=== PATIENT | female | born 1980 | race Caucasian/White ===

== ENCOUNTER 2021-05-18 19:06 | Emergency (ER) | payer MEDICAID, SELFPAY ==
--- NOTE | 2021-05-18 | ECG_ITS ---
Test Reason : CHEST PAIN Blood Pressure : / mmHG Vent. Rate : 107 BPM Atrial Rate : 107 BPM P-R Int : 132 ms QRS Dur : 076 ms QT Int : 326 ms P-R-T Axes : 025 028 015 degrees QTc Int : 435 ms Sinus tachycardia Otherwise normal ECG No previous ECGs available Referred By: Generic ED Physician Electronically Signed By:CALISTA SHERMAN MD
--- NOTE | ~2021-05-18 | CT_ITS ---
EXAMINATION: CT CHEST WITH CONTRAST CLINICAL INFORMATION: Left breast pain. Fevers. Covid positive. COMPARISON: Chest radiograph 06/23/2017. TECHNIQUE: Multidetector volumetric CT imaging of the chest was obtained after the administration of 75 mL of Omnipaque 350 intravenous contrast without immediate adverse reactions. Axial MIP volume rendering provided. Sagittal and coronal reformatted images were obtained. This CT examination was performed using dose optimization techniques as appropriate, variously including the following: *Automated exposure control *Adjustment of mA and/or kV according to patient size (this includes techniques or standardized protocols for targeted exams where dose is matched to indication/reason for exam; i.e. extremities or head) *Use of iterative reconstruction technique DLP: 343 mGy-cm FINDINGS: Lungs: Clear. No groundglass opacities. No pulmonary consolidation. No suspicious pulmonary nodules. Mediastinum: No mediastinal lymphadenopathy. Normal heart size. No pericardial thickening or fluid collections. Normal caliber of the main and central pulmonary arteries. Pleura: No pleural effusions or pneumothoraces. CHEST WALL: The left breast demonstrates asymmetrically prominent confluent right retroareolar and outer quadrant reticular densities. No abnormal thickening is noted. Several prominent left axillary lymph nodes are noted but demonstrate normal architecture and are not definitively pathologically enlarged. Visualized abdominal structures: The liver is partially included in the image [id number] and is normal in appearance. Normal appearance of the adrenal glands. Osseous structures: No suspicious skeletal lesions identified. Mild multilevel anterior endplate osteophytosis of the thoracic spine. CT/CT chest w con IMPRESSION: -Asymmetric retroareolar and outer quadrant densities within the left breast. These findings could represent inflammatory changes and may correlate with mastitis. Alternatively, neoplasm including neoplasm with associated inflammatory changes could present with similar findings. Recommend clinical correlation and consideration of further dedicated mammographic imaging including possible 2-D/3-D mammography and breast ultrasonography. -Lungs clear. No evidence of pneumonia.
[2021-05-18 19:55] VITALS: PULSE 104; RESP 20; TEMP 36.8; O2SAT 100; BMI 33.0
[2021-05-19 00:29] VITALS: BP 139/73; PULSE 118; RESP 24; TEMP 38.2; O2SAT 100
--- NOTE | 2021-05-19 00:40 | ED.GENADULT ---
HPI - General Adult General Chief complaint: General Medical Stated complaint: L breast pain Time Seen by Provider: 05/19/21 00:25 Source: patient Mode of arrival: ambulatory Limitations: no limitations History of Present Illness MD complaint: L breast pain Onset (ago): day(s) (on 05/18 woke up with pain) Location: chest (L breast) Severity: severe Quality: stabbing Pain Consistency: constant Relieving factors: none Exacerbating factors: other (palpiation) Associated symptoms: fever/chills, loss of appetite and malaise Treatments prior to arrival: none Related Data Allergies Allergy/AdvReac Type Severity Reaction Status Date / Time No Known Allergies Allergy Verified 05/18/21 19:54 Review of Systems Review of Systems: Constitutional : No Weight loss, pos Fever, pos Chills, No Fatigue, pos Malaise ENT/Mouth : No sore throat, No Rhinorrhea Eyes: No Eye Pain, No Swelling, No Redness Cardiovascular : No Chest Pain, No SOB, No Dyspnea on Exertion, No Orthopnea, No Edema, No Palpitations Respiratory : No Cough, No Sputum, No Wheezing Gastrointestinal : No Nausea, No Vomiting, No Diarrhea, No Constipation, No abdominal Pain, No Hematochezia, No Melena Genitourinary : No Dysuria, No Urinary Frequency, No Hematuria, Musculoskeletal : No joint pain, No Myalgias, No Joint Swelling Skin : No Skin Lesions, No rash, pos breast pain Neuro : No Weakness, No Numbness, No Dizziness, No Headache Psych : No Anxiety/Panic, No Depression Heme/Lymph: No Bruising, No Bleeding,No Lymphadenopathy Endocrine : No Polyuria, No Polydipsia All other systems reviewed and are negative [facility] Past Medical History Attestation statement: The following information was validated with the patient. Medical History (Updated 05/19/21 @ 01:39 by Brea Nichole DO) Anemia No pertinent past medical history Social History Social History (Updated 05/19/21 @ 00:43 by Brea Nichole DO) Patient Tobacco Use Status: Never used Tobacco Use of substances other than those prescribed or required for medical reasons: No Advance Directives: No Advance Directives Information Provided: No Patient : No Physical Exam Vital Signs: Vital Signs: Last Vital Signs Temp 100.7 F H 05/19/21 00:29 Pulse 118 H 05/19/21 00:29 Resp 24 H 05/19/21 00:29 BP 139/73 05/19/21 00:29 Pulse Ox 100 05/19/21 00:29 Body Mass Index 33.0 Appearance: Alert. Oriented X3. No acute distress. Eyes: Pupils equal, round and reactive to light. ENT: Pharynx normal. Neck: Normal inspection. Neck supple. CVS: tachycardic heart rate and rhythm. Pulses normal. Chest: tender mass felt under areola and superior breast - no overlying erythema noted but very ttp Respiratory: No respiratory distress. Breath sounds normal. Abdomen: Soft and nontender. Skin: Skin warm and dry. Normal skin color. Normal skin turgor. Extremities: No lower extremity edema. No calf ttp Neuro: Oriented X 3. No motor deficit. No sensory deficit. Course Course Course Narrative: signed out to Dr. Boss pending CT scan patient is vaccinated x 2. Medical Decision Making MDM Narrative Medical decision making narrative: 40 yo female with no hx of DM here with L breast pain and fevers no overlying cellulitis but the concern is for abscess given fevers - labs, cultures, CT scan, IV antibiotics and IV morphine for pain medications Lab Data Result diagrams: 05/19/21 01:07 05/19/21 00:47 Labs: Lab Results 05/19/21 05/19/21 05/19/21 Range/Units 00:47 00:47 00:47 WBC (4.8-10.8) X10*3/uL RBC (4.20-5.50) X10*6/uL Hgb (12.0-16.0) g/dl Hct (37.0-47.0) % MCV (80.0-98.0) fL MCH (27.0-33.0) pg MCHC (31.0-35.0) g/dl RDW (11.0-16.0) % Plt Count (160-400) X10*3/uL MPV (9.4-12.3) fL Immature Gran % (Auto) (0.0-0.4) % Neut % (Auto) (45-73) % Lymph % (Auto) (20-40) % Paul[place] % (Auto) (2-11) % Eos % (Auto) (0-4) % Baso % (Auto) (0-2) % Lymph # (Auto) (1.2-4.9) X10*3/uL [place] # (Auto) (0.1-1.2) X10*3/uL Eos # (Auto) (0.0-0.4) X10*3/uL Baso # (Auto) (0.0-0.2) X10*3/uL Abs Immat Gran (auto) (0.00-0.03) X10*3/uL Absolute Neuts (auto) (2.0-8.3) x10*3/uL Absolute Nucleated RBC (0.0-0.012) X10*3/uL Nucleated RBC % (auto) (0.0-0.2) /100WBC Sodium 137 (135-145) mmol/L Potassium 4.1 (3.3-5.1) mmol/L Chloride 105 (96-108) mmol/L Carbon Dioxide 20 L (22-29) mmol/L Anion Gap 16 (12-20) BUN 8 L (9-16) mg/dL Creatinine 0.83 (0.5-1.4) mg/dL Estim Creat Clear Calc 86.8 Estimated GFR > 60 Random Glucose 101 (60-115) mg/dL Lactic Acid 1.3 (0.5-2.0) mmol/L Calcium 9.2 (8.4-10.2) mg/dL Magnesium 2.0 (1.6-2.6) mg/dL Total Bilirubin 0.5 (0.0-1.0) mg/dL Direct Bilirubin 0.2 (0.0-0.5) mg/dL AST 17 (5-31) U/L ALT 17 (0-31) U/L Alkaline Phosphatase 82 (39-117) U/L Total Protein 8.0 (6.5-8.0) g/dL Albumin 4.1 (3.5-5.0) g/dL COVID-19 (GRANT) Positive A (Negative) COVID-19 Clin Com See Note 05/19/21 Range/Units 01:07 WBC 19.1 H (4.8-10.8) X10*3/uL RBC 4.42 (4.20-5.50) X10*6/uL Hgb 8.0 L (12.0-16.0) g/dl Hct 26.7 L (37.0-47.0) % MCV 60.4 L (80.0-98.0) fL MCH 18.1 L (27.0-33.0) pg MCHC 30.0 L (31.0-35.0) g/dl RDW 21.1 H (11.0-16.0) % Plt Count 318 (160-400) X10*3/uL MPV 9.7 (9.4-12.3) fL Immature Gran % (Auto) 0.5 H (0.0-0.4) % Neut % (Auto) 86.1 H (45-73) % Lymph % (Auto) 6.0 L (20-40) % Paul[place] % (Auto) 6.5 (2-11) % Eos % (Auto) 0.6 (0-4) % Baso % (Auto) 0.3 (0-2) % Lymph # (Auto) 1.2 (1.2-4.9) X10*3/uL [place] # (Auto) 1.2 (0.1-1.2) X10*3/uL Eos # (Auto) 0.1 (0.0-0.4) X10*3/uL Baso # (Auto) 0.1 (0.0-0.2) X10*3/uL Abs Immat Gran (auto) 0.09 H (0.00-0.03) X10*3/uL Absolute Neuts (auto) 16.5 H (2.0-8.3) x10*3/uL Absolute Nucleated RBC 0.000 (0.0-0.012) X10*3/uL Nucleated RBC % (auto) 0.0 (0.0-0.2) /100WBC Sodium (135-145) mmol/L Potassium (3.3-5.1) mmol/L Chloride (96-108) mmol/L Carbon Dioxide (22-29) mmol/L Anion Gap (12-20) BUN (9-16) mg/dL Creatinine (0.5-1.4) mg/dL Estim Creat Clear Calc Estimated GFR Random Glucose (60-115) mg/dL Lactic Acid (0.5-2.0) mmol/L Calcium (8.4-10.2) mg/dL Magnesium (1.6-2.6) mg/dL Total Bilirubin (0.0-1.0) mg/dL Direct Bilirubin (0.0-0.5) mg/dL AST (5-31) U/L ALT (0-31) U/L Alkaline Phosphatase (39-117) U/L Total Protein (6.5-8.0) g/dL Albumin (3.5-5.0) g/dL COVID-19 (GRANT) (Negative) COVID-19 Clin Com Discharge Plan Discharge Clinical Impression: COVID-19 Fever Qualifiers: Fever type: unspecified Qualified Code(s): R50.9 - Fever, unspecified Leukocytosis Qualifiers: Leukocytosis type: unspecified Qualified Code(s): D72.829 - Elevated white blood cell count, unspecified
[2021-05-19] MEDS: ondansetron HCL 4 MG/2 ML VIAL IVPUSH (00:57)
[2021-05-19] MEDS: Morphine Sulfate 4 MG/ML CARTRIDGE IVPUSH (00:57)
[2021-05-19] MEDS: Acetaminophen 325 MG TABLET 650 MG PO (00:57)
[2021-05-19] MEDS: Piperacillin Sodium/Tazobactam 3.375 GM in 0.9 % Sodium Chloride 50 ML IV (00:57)
[2021-05-19 01:05] LABS: Lactic Acid 1.3 mmol/L (0.5-2.0)
[2021-05-19 01:08] LABS: Alanine Aminotransferase 17 U/L (0-31); Albumin Level 4.1 g/dL (3.5-5.0); Alkaline Phosphatase 82 U/L (39-117); Anion Gap 16 (12-20); Aspartate Amino Transferase 17 U/L (5-31); Bilirubin Direct 0.2 mg/dL (0.0-0.5); Bilirubin Total 0.5 mg/dL (0.0-1.0); Blood Urea Nitrogen 8 mg/dL (9-16); Calcium 9.2 mg/dL (8.4-10.2); Carbon Dioxide 20 mmol/L (22-29); Chloride 105 mmol/L (96-108); Creatinine Clr Calc Pharmacy 86.8; Estimated Glomerular Filt Rate > 60; Glucose Random 101 mg/dL (60-115); Potassium 4.1 mmol/L (3.3-5.1); Sodium 137 mmol/L (135-145)
[2021-05-19] MEDS: 0.9 % Sodium Chloride 1,000 ML 999 ML IVCONT (01:12)
[2021-05-19 01:15] LABS: Basophils Absolute Auto 0.1 X10*3/uL (0.0-0.2); Basophils Percent Auto 0.3 % (0-2); Imm Gran Abs Auto 0.09 X10*3/uL (0.00-0.03); Imm Gran Pct Auto 0.5 % (0.0-0.4); PLT ABN DIST 1; Red Cell Distribution Width 21.1 % (11.0-16.0); SCAN SMEAR FLAG 1
[2021-05-19 01:16] LABS: IDNOW Serial# 9DD0AD1C
[2021-05-19 01:17] LABS: Eosinophils Absolute Auto 0.1 X10*3/uL (0.0-0.4); Eosinophils Percent Auto 0.6 % (0-4); Hematocrit 26.7 % (37.0-47.0); Lymphocytes Absolute Auto 1.2 X10*3/uL (1.2-4.9); Mean Corpuscular Hemoglobin 18.1 pg (27.0-33.0); Mean Platelet Volume 9.7 fL (9.4-12.3); Monocytes Absolute Auto 1.2 X10*3/uL (0.1-1.2); Monocytes Percent Auto 6.5 % (2-11); Neutrophils Absolute Auto 16.5 x10*3/uL (2.0-8.3); Neutrophils Percent Auto 86.1 % (45-73); Platelet Count 318 X10*3/uL (160-400); Red Blood Count 4.42 X10*6/uL (4.20-5.50); White Blood Count 19.1 X10*3/uL (4.8-10.8)
[2021-05-19 01:18] LABS: COVID-19 Test Positive (Negative)
[2021-05-19 01:22] LABS: MANUAL DIFF FLAG NO; Mean Corpuscular Volume 60.4 fL (80.0-98.0)
[2021-05-19] MEDS: vancomycin HCL 1,000 MG in 0.9 % Sodium Chloride 250 ML 270 MG IV (01:38)
[2021-05-19] MEDS: iohexoL 350 MG/ML 100 ML INFUS..BTL 75 ML IV (02:15)
[2021-05-19 03:59] VITALS: BP 106/64; PULSE 115; RESP 16; TEMP 37.6; O2SAT 99
== END 2021-05-19 04:09 | disposition home or self-care (01) ==
PROVIDERS: Emergency Provider Emergency Medicine
DX: U07.1 COVID-19 (principal); D72.829 Elevated white blood cell count, unspecified; N64.4 Mastodynia; R50.9 Fever, unspecified; Z79.899 Other long term (current) drug therapy
CPT/HCPCS: 36415; 71260; 80048; 80076; 83605; 83735; 85025; 87040; 87635; 93005; 96365; 96375; 99284; J2270; J2405; J2543; J3370; Q9967

== ENCOUNTER 2021-08-27 08:53 | Outpatient (REF) | payer MEDICAID, SELFPAY ==
--- NOTE | ~2021-08-27 | XR_ITS ---
EXAMINATION: XR CHEST CLINICAL INFORMATION: Cough COMPARISON: Chest radiographs 06/23/2017 TECHNIQUE: 2 views of the chest were obtained. FINDINGS: No significant abnormality is noted involving the heart, lungs, mediastinum, bony thorax or soft tissues. XR/XR chest 2V IMPRESSION: Unremarkable examination.
== END 2021-08-27 08:54 | disposition home or self-care (01) ==
LOC: HO.XRAY 08:53
PROVIDERS: Absent Provider Registered Nurse Community Health; PCP Registered Nurse Community Health; Visit Provider Emergency Medicine
DX: R05.9 Cough, unspecified (principal)
CPT/HCPCS: 71046

== ENCOUNTER 2024-01-12 16:05 | Outpatient (REF) | payer MEDICAID, SELFPAY ==
--- NOTE | ~2024-01-12 | XR_ITS ---
EXAMINATION: XR CHEST CLINICAL INFORMATION: Intermittent shortness of breath COMPARISON: X-ray 08/27/2021 TECHNIQUE: 2 views of the chest were obtained. FINDINGS: The cardiomediastinal silhouette is within normal limits. The lungs are well expanded. There is no focal consolidation, edema, or effusion. No pneumothorax. No acute osseous abnormality. XR/XR chest 2V IMPRESSION: No evidence of acute pulmonary process.
== END 2024-01-12 16:06 | disposition home or self-care (01) ==
LOC: HO.HHCX 16:05
PROVIDERS: Visit Provider Family Medicine
DX: R06.02 Shortness of breath (principal)
CPT/HCPCS: 71046

== ENCOUNTER 2024-02-16 17:26 | Emergency (ER) | payer OTHER, MEDICAID, SELFPAY ==
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
[2024-02-16 17:31] VITALS: BP 128/84; PULSE 62; O2SAT 100
[2024-02-16 17:49] VITALS: BMI 33.8
[2024-02-16 17:56] VITALS: BP 123/74; PULSE 88; RESP 18; TEMP 36.7; O2SAT 98
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
[2024-02-16] MEDS: Acetaminophen 325 MG TABLET 975 MG PO (18:47)
[2024-02-16 18:55] LABS: HCG Quantitative < 2 mIU/mL
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
[2024-02-16 20:17] VITALS: BP 125/73; PULSE 78; RESP 17; TEMP 36.7; O2SAT 98
[2024-02-16 20:20] VITALS: BP 125/73; PULSE 78; RESP 17; TEMP 36.7; O2SAT 98
== END 2024-02-16 20:21 | disposition home or self-care (01) ==
PROVIDERS: Physician Assistant Medical; Emergency Provider Emergency Medicine
DX: S13.4XXA Sprain of ligaments of cervical spine, initial encounter (principal); M54.2 Cervicalgia; M54.50 Low back pain, unspecified; R10.2 Pelvic and perineal pain; V43.52XA Car driver injured in collision with other type car in traffic accident, initial encounter; Y93.89 Activity, other specified; Y92.488 Other paved roadways as the place of occurrence of the external cause; Y99.8 Other external cause status
CPT/HCPCS: 36415; 70450; 72125; 84702; 99283; 99284